=== PATIENT | female | born 1960 | race African-American/Black ===

== ENCOUNTER 2017-11-08 12:00 | Outpatient (CLI) | payer OTHER | END 2017-11-08 23:59 | disposition home or self-care (01) | LOC: D.MAMMO 12:00 | DX: Z12.31 Encounter for screening mammogram for malignant neoplasm of breast (principal) ==

== ENCOUNTER → 2017-12-10 18:19 | Outpatient (CLI) | payer OTHER | END | disposition home or self-care (01) | LOC: D.MAMMO 11:30 | DX: R92.8 Other abnormal and inconclusive findings on diagnostic imaging of breast (principal) ==